=== PATIENT | female | born 1970 | race Caucasian/White ===

== ENCOUNTER 2020-03-05 04:10 | Emergency (ER) | payer OTHER ==
[~2020-03-05] VITALS: Ht 180.3 cm; Wt 113.4 kg
[2020-03-05 04:22] VITALS: Ht 180.3 cm; Wt 113.4 kg
[2020-03-05 09:06] VITALS: BP 117/61
== END 2020-03-05 09:06 | disposition home or self-care (01) ==
LOC: ED 04:10
DX: R07.89 Other chest pain (principal); R10.816 Epigastric abdominal tenderness; I11.0 Hypertensive heart disease with heart failure; I50.9 Heart failure, unspecified; I48.91 Unspecified atrial fibrillation
CPT/HCPCS: J1885